=== PATIENT | female | born 1960 | race Caucasian/White ===

== ENCOUNTER → 2016-12-28 | Outpatient (CLI) | payer OTHER ==
--- NOTE | 2016-12-28 21:17 | MA ---
Digital Screening Mammogram Bilateral With Tomosynthesis 12/28/2016 10:08 Indication: Screening Comparison: May 2016, October 2015, and October 2014. Technique: Standard digital cephalocaudal and tomosynthesis mediolateral oblique projections are obt ained. The digital images were processed by the [employer]io computer-aided detection system. Findings: Standard views of both breasts demonstrate scattered fibroglandular tissue, breast B (25-50 %). Stable parenchymal pattern. Benign-appearing nodular densities are seen bilaterally, stable in ap pearance, most likely representing benign intramammary lymph nodes. No suspicious microcalcification is seen in either breast. No suspicious interval change. IMPRESSION: Benign. BI-RADS 2. Recommendation: Screening mammogram in one year. [facility] will send a result letter to the patient. Negative mammography should not preclude additional workup of a clinically suspicious finding. The patient's information is entered into a reminder system with a target due date for her next mammo gram.
== END ==
LOC: FIMAGING 10:06
DX: Z12.31 Encounter for screening mammogram for malignant neoplasm of breast (principal)
CPT/HCPCS: G0202

== ENCOUNTER → 2018-04-21 | Outpatient (CLI) | payer OTHER | LOC: FIMAGING 08:57 | PROVIDERS: ATTEND Family Medicine | DX: Z12.31 Encounter for screening mammogram for malignant neoplasm of breast (principal) ==

== ENCOUNTER → 2019-04-27 | Outpatient (CLI) | payer OTHER | LOC: FIMAGING 12:50 ==

== ENCOUNTER → 2019-05-12 | Outpatient (CLI) | payer OTHER | LOC: FIMAGING 10:16 ==